=== PATIENT | female | born 1960 | race Asian ===

== ENCOUNTER 2017-02-26 10:55 | Emergency (ER) | payer OTHER ==
[2017-02-26 11:18] VITALS: BP 163/88; PULSE 89; TEMP 98.2; BMI 27.4
--- NOTE | 2017-02-26 12:00 | PDOC ---
History of Present Illness - General Chief Complaint: Pain Stated Complaint: LFT KNEE PAIN Time Seen by Provider: 02/26/17 11:29 History Source: Patient Exam Limitations: No Limitations - History of Present Illness Initial Comments: 02/26/17 11:52 CHIEF COMPLAINT:Left knee and posterior leg pain. HISTORY OF PRESENT ILLNESS: Patient Is a 56-year-old with history of hypertension, [id number] diabetes, high cholesterol presents for evaluation of left leg pain patient reports 3 days ago was in bed rolled over and fell off of couch hitting her left leg. Since with pain has been staying in bed because of the pain. Now with left calf pain to left knee pain. She denies any chest pain or shortness of breath, no back pain. Denies any other further injury. REVIEW OF SYSTEMS: GENERAL: Afebrile, A&O x3 RESPIRATORY: No cough, wheezing, or hemoptysis. CARDIAC: No CP or SOB MUSCULOSKELETAL: Pain to Left anterior knee and posterior left calf. SKIN : No erythema, no deformity. Swelling to the left knee with bruise inferior to the left patella. NEUROLOGICAL: Denies any numbness or tingling. PHYSICAL EXAM: GENERAL: The patient is awake, alert, and fully oriented, in no acute distress. HEAD: Normal with no signs of trauma. RESPIRATORY: Lungs clear bilaterally no rhonchi, rales, or wheezes CARDIAC: S1-S2 audible, no murmur rub or gallop EXTREMITIES: Decreased range of motion to left knee related to pain, no fluid appreciated, no bulge sign. Pain to superior patella. Negative drop test. Negative posterior leg test. No joint laxity noted, no ecchymosis, no deformity , no abrasions ,no edema. +3 popliteal pulse. Left calf pain with no edema or erythema. MUSCULOSKELETAL: No spinal point tenderness. SKIN: Warm, Dry, normal turgor, no erythema, Edema and bruising to the left knee. Past History - Past Medical History Allergies/Adverse Reactions: Allergies Allergy/AdvReac Type Severity Reaction Status Date / Time No Known Allergies Allergy Unverified 02/26/17 11:17 Home Medications: Ambulatory Orders Ibuprofen [Motrin -] 600 mg PO QID #28 tablet 02/26/17 Diabetes: Yes HTN: Yes Hypercholesterolemia: Yes - Psycho/Social/Smoking Cessation Hx Suicidal Ideation: No Smoking History: Never smoked Hx Alcohol Use: No Drug/Substance Use Hx: No *Physical Exam - Vital Signs Last Vital Signs Temp Pulse Resp BP Pulse Ox 98.2 F 89 17 163/88 98 02/26/17 11:15 02/26/17 11:15 02/26/17 11:15 02/26/17 11:15 02/26/17 11:15 ED Treatment Course - RADIOLOGY Radiology Studies Ordered: Category Date Time Status KNEE 3 POS-LEFT [RAD] Stat Radiology 02/26/17 11:50 Ordered DUPLEX VASCUL US-1 LEG [US] Stat Ultrasound 02/26/17 11:50 Ordered Medical Decision Making - Medical Decision Making 02/26/17 13:08 A/P : Left knee and calf pain. Traumatic Plan: Xray left knee US left calf. Xray with moderate effusion with no acute fracture dislocation waiting ultrasound 02/26/17 14:13 Still awaiting ultrasound results. 02/26/17 14:42 US demonstrated no DVT, there is a 5x1 cm bakers cyst. Knee immobilizer placed on. Diagnosis of knee effusion Patient discharged to follow-up with orthopedics, instructions given, anti- inflammatories Motrin for pain. I discussed the physical exam findings, ancillary test results and final diagnoses with the patient. I answered all of the patient's questions. The patient was satisfied with the care received and felt comfortable with the discharge plan and treatment plan. The patient will call to arrange follow-up and will return to the Emergency Department with any new, persistent or worsening symptoms. 02/26/17 22:43 *DC/Admit/Observation/Transfer Diagnosis at time of Disposition: Knee effusion, left Accidental fall Qualifiers: Encounter type: initial encounter Qualified Code(s): W19.XXXA - Unspecified fall, initial encounter - Discharge Dispostion Admit: No - Prescriptions Prescriptions: Ibuprofen [Motrin -] 600 mg PO QID #28 tablet - Referrals Referrals: Gildardo Fernández MD [Staff Physician] - - Patient Instructions Printed Discharge Instructions: DI for Knee Effusion Additional Instructions: 1. Please return to the emergency department with any redness, swelling, increased pain, or any other concerns. 2. Keep splint on. 3. Please follow up in the office of Dr. Fernández within a week if pain persists. 4. No weightbearing 5. Ice and elevate when at rest. 6. Motrin for pain - Post Discharge Activity Work/School Note: Back to Work
== END 2017-02-26 14:57 | disposition home or self-care (01) ==
LOC: JERFT 10:55
PROC: 2W3RX1Z Immobilization of Left Lower Leg using Splint (ICD-10-PCS; principal; 2017-02-26)
DX: M25.462 Effusion, left knee (principal); I10 Essential (primary) hypertension; E11.9 Type 2 diabetes mellitus without complications; E78.00 Pure hypercholesterolemia, unspecified; W06.XXXA Fall from bed, initial encounter; Y93.89 Activity, other specified; Y92.003 Bedroom of unspecified non-institutional (private) residence as the place of occurrence of the external cause
CPT/HCPCS: 73562-TC-LT; 93971-TC; 99281-25

== ENCOUNTER 2017-03-03 08:14 | Emergency (ER) | payer OTHER ==
[2017-03-03 08:21] VITALS: BP 136/78; PULSE 70; TEMP 97.8; BMI 27.4
--- NOTE | 2017-03-03 09:12 | PDOC ---
History of Present Illness - General Chief Complaint: Pain Stated Complaint: PAIN, REVISIT Time Seen by Provider: 03/03/17 08:41 History Source: Patient Exam Limitations: No Limitations - History of Present Illness Initial Comments: 03/03/17 09:06 Zohaib has return to emergency Department with complaints of persistent left knee pain. slipped and fell while at work on the incurring a twisting injury of her left knee. was seen, tested here for x-ray and ultrasound all with negative results except for a Lawson cyst noted in the ultrasound that 5cm. 03/03/17 09:07 03/03/17 13:20 03/03/17 13:28 Occurred: reports: last week Severity: reports: moderate Pain Location: reports: lower extremity (left knee) Associated Symptoms (Fall): denies symptoms Past History - Travel Traveled outside of the country in the last 30 days: No Close contact w/someone who was outside of country & ill: No - Past Medical History Allergies/Adverse Reactions: Allergies Allergy/AdvReac Type Severity Reaction Status Date / Time No Known Allergies Allergy Unverified 03/03/17 08:17 Home Medications: Ambulatory Orders Ibuprofen [Motrin -] 600 mg PO QID #28 tablet 02/26/17 Oxycodone HCl/Acetaminophen [Percocet 5-325 mg Tablet -] 1 - 2 tab PO Q4H PRN # 10 tablet MDD 4 03/03/17 Diabetes: Yes HTN: Yes Hypercholesterolemia: Yes - Psycho/Social/Smoking Cessation Hx Anxiety: No Suicidal Ideation: No Smoking History: Never smoked Have you smoked in the past 12 months: No Information on smoking cessation initiated: No Hx Alcohol Use: No Drug/Substance Use Hx: No Substance Use Type: None Review of Systems - Review of Systems Able to Perform ROS?: Yes Is the patient limited Yoruba proficient: Yes Constitutional: Yes: See HPI. No: Symptoms Reported, Chills, Fever HEENTM: No: Symptoms Reported Musculoskeletal: Yes: Symptoms Reported, See HPI, Joint Pain, Joint Swelling ( right knee-) All Other Systems: Reviewed and Negative *Physical Exam - Vital Signs Last Vital Signs Temp Pulse Resp BP Pulse Ox 97.8 F 70 18 136/78 100 03/03/17 08:18 03/03/17 08:18 03/03/17 08:18 03/03/17 08:18 03/03/17 08:18 - Physical Exam General Appearance: Yes: Nourished, Appropriately Dressed, Apparent Distress, Mild Distress HEENT: positive: ASTRID, Normal ENT Inspection, TMs Normal, Pharynx Normal Neck: positive: Supple Respiratory/Chest: positive: Lungs Clear Extremity: positive: Normal Capillary Refill. 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 Richter office now and will go from here to there. *DC/Admit/Observation/Transfer Diagnosis at time of Disposition: Pain in knee joint Qualifiers: Laterality: left Qualified Code(s): M25.562 - Pain in left knee - Discharge Dispostion Disposition: HOME Condition at time of disposition: Good Admit: No - Prescriptions Prescriptions: Oxycodone HCl/Acetaminophen [Percocet 5-325 mg Tablet -] 1 - 2 tab PO Q4H PRN # 10 tablet MDD 4 PRN Reason: Pain - Referrals Referrals: Gildardo Fernández MD [Staff Physician] - - Patient Instructions Printed Discharge Instructions: DI for Knee Sprain Additional Instructions: Rest, ice to area on and off for 15 minutes 4-6 times a day Avoid heavy lifting or exercise until pain and swelling is resolved or until further directed Keep area highly elevated to reduce swelling Use splints/Asim wrap as directed Followup with orthopedist in one to 2 days if not improving, if significantly improved may wait one week for followup with orthopedist May use ibuprofen 2-200 mg tablets every 6 hours as needed for pain May use Percocet for severe pain - Post Discharge Activity Work/School Note: Back to Work
== END 2017-03-03 10:31 | disposition home or self-care (01) ==
LOC: JERFT 08:14
DX: M25.562 Pain in left knee (principal); E11.9 Type 2 diabetes mellitus without complications; I10 Essential (primary) hypertension; E78.00 Pure hypercholesterolemia, unspecified
CPT/HCPCS: 99281-25